=== PATIENT | male | born 1980 | race Caucasian/White ===

== ENCOUNTER 2018-01-28 09:07 | Emergency (ER) | payer MEDICAID, OTHER ==
[~2018-01-28] VITALS: Ht 182.9 cm; Wt 74.3 kg
[2018-01-28 09:16] VITALS: BP 124/76
[2018-01-28] MEDS ORDERED: PENI250T2 PO (09:44)
[2018-01-28] MEDS ORDERED: TRAM50TA2 PO (09:44)
== END 2018-01-28 09:54 | disposition home or self-care (01) ==
LOC: ER 09:07
DX: S02.5XXA Fracture of tooth (traumatic), initial encounter for closed fracture (principal); K02.9 Dental caries, unspecified; Z88.5 Allergy status to narcotic agent; Z88.8 Allergy status to other drugs, medicaments and biological substances; Z88.0 Allergy status to penicillin; Z79.899 Other long term (current) drug therapy; X58.XXXA Exposure to other specified factors, initial encounter; Y93.89 Activity, other specified; Y92.89 Other specified places as the place of occurrence of the external cause; Y99.8 Other external cause status
CPT/HCPCS: 99283

== ENCOUNTER 2021-12-05 10:09 | Emergency (ER) | payer MEDICAID, OTHER ==
[~2021-12-05] VITALS: Ht 185.4 cm; Wt 81.8 kg
[2021-12-05 10:11] VITALS: BP 144/81
[2021-12-05] MEDS ORDERED: AMOX500C2 PO (10:53)
== END 2021-12-05 11:11 | disposition home or self-care (01) ==
LOC: ER 10:09
DX: J02.9 Acute pharyngitis, unspecified (principal); Z88.6 Allergy status to analgesic agent; Z79.2 Long term (current) use of antibiotics
CPT/HCPCS: 99283

== ENCOUNTER 2023-06-12 00:27 | Emergency (ER) | payer MEDICAID ==
[~2023-06-12] VITALS: Ht 182.9 cm; Wt 77.3 kg
[2023-06-12 00:29] VITALS: TEMP 99.1
[2023-06-12 01:13] LABS: BASOPHILS % (AUTO) 0.2 % (0-1); EOSINOPHILS # (AUTO) 0.1 X10'3 (0-0.9); EOSINOPHILS % (AUTO) 0.4 % (0-6); HEMATOCRIT 39.5 % (42.0-52.0); HEMOGLOBIN 13.4 g/dl (14.0-17.9); LYMPHOCYTES # (AUTO) 1.7 X10'3 (1.1-4.8); LYMPHOCYTES % (AUTO) 11.6 % (21-51); MEAN CORPUSCULAR HEMOGLOBIN 30.4 PG (27.0-31.0); MEAN CORPUSCULAR HGB CONC 33.9 g/dL (33.0-36.5); MEAN CORPUSCULAR VOLUME 89.7 FL (78-98); MEAN PLATELET VOLUME 8.5 FL (7.4-10.4); MONOCYTES % (AUTO) 6.9 % (2-12); NEUTROPHILS # (AUTO) 12.1 X10'3 (1.8-7.7); NEUTROPHILS % (AUTO) 80.9 % (42-75); PLATELET COUNT 243 X10'3 (140-440)
[2023-06-12 01:17] LABS: ALANINE AMINOTRANSFERASE 21 U/L (12-78); ALBUMIN 3.9 G/DL (3.4-5.0); ALBUMIN/GLOBULIN RATIO 1.1 (1.1-1.5); ALKALINE PHOSPHATASE 74 IU/L (46-116); ANION GAP 13 (8-16); ASPARTATE AMINO TRANSFERASE 17 U/L (10-37); BILIRUBIN,TOTAL 0.5 MG/DL (0.1-1.0); BLOOD UREA NITROGEN 23 MG/DL (7-18); BUN/CREATININE RATIO 17.4 (10.0-20.0); CALCIUM 8.7 MG/DL (8.5-10.1); CHLORIDE 101 MMOL/L (99-107); CREATININE 1.32 MG/DL (0.60-1.10); GLUCOSE 143 MG/DL (70-104); LIPASE 57 U/L (16-77); POTASSIUM 3.8 MMOL/L (3.5-5.1); SODIUM 139 MMOL/L (135-145); TOTAL CARBON DIOXIDE 24.7 MMOL/L (24-32); TOTAL PROTEIN 7.6 G/DL (6.4-8.2); eCRCL 81 ML/MIN; eGFR 60 ML/MIN
[2023-06-12] MEDS: ondansetron/PF 4mg/2ml inj IV ONE (01:21)
[2023-06-12] MEDS: morphine 4 MG/ML inj SYRINge IV ONE (01:21)
[2023-06-12] MEDS: normal saline 1000ml 1,000 ML IV ONE (01:22)
[2023-06-12] MEDS: oxyCODONE IR 5mg (immed. release) tablet PO ONE ×2 (02:36→07:21)
[2023-06-12] MEDS: fentaNYL/PF 50MCG/1 ML 2ML syringe IV ONE ×2 (02:51→04:31)
[2023-06-12 03:58] LABS: BILIRUBIN,URINE NEGATIVE (Neg); COLOR,URINE YELLOW (Yellow); GLUCOSE, URINE NEGATIVE (Neg); KETONES,URINE >=80 mg/dl (Neg); LEUKOCYTE ESTERASE ,URINE NEGATIVE (Neg); NITRITES, URINE NEGATIVE (Neg); OCCULT BLOOD,URINE LARGE (Neg); PH,URINE 6.5 (4.8-8.0); PROTEIN,URINE TRACE mg/dl (Neg); UROBILINOGEN,URINE 0.2 E.U/dL (0.2-1.0)
[2023-06-12 04:00] LABS: CLARITY,URINE SLIGHTLY CLOUDY (Clear); UA COLLECTION TYPE NON-SPECIFIED
[2023-06-12 04:08] LABS: URINE AMPHETAMINE SCREEN NEGATIVE (Neg); URINE BARBITUATE SCREEN NEGATIVE (Neg); URINE BENZODIAZEPINES SCREEN NEGATIVE (Neg); URINE CANNABINOID SCREEN POSITIVE (Neg); URINE COCAINE SCREEN NEGATIVE (Neg); URINE METHADONE SCREEN NEGATIVE (Neg); URINE OPIATE SCREEN POSITIVE (Neg); URINE PHENCYCLIDINE SCREEN NEGATIVE (Neg)
[2023-06-12 04:12] LABS: BACTERIA,URINE FEW /HPF (Neg); RBC,URINE 20-50 /HPF (0-2); SQUAMOUS EPITHELIAL CELL,UR FEW /LPF (FEW); WBC,URINE 0-4 /HPF (0-4)
[2023-06-12] MEDS ORDERED: OXYC-658 PO (05:43)
[2023-06-12] MEDS ORDERED: ONDA8TAB13 PO (05:43)
[2023-06-12] MEDS: OXYcodone (OXYCONTIN) Ext Release 15 MG TAB.SR.12H PO ONE (08:02)
[2023-06-12 08:33] VITALS: BP 111/53; PULSE 73; RESP 14; O2SAT 97
== END 2023-06-12 08:33 | disposition home or self-care (01) ==
LOC: ER 00:27
DX: N20.0 Calculus of kidney (principal); J45.909 Unspecified asthma, uncomplicated; Z88.6 Allergy status to analgesic agent; Z79.82 Long term (current) use of aspirin
CPT/HCPCS: 36415; 74176; 80053; 80305; 81001; 83690; 85025; 96361; 96374; 96375; 96376; 99285; J2270; J2405; J3010; J7030; A4615

== ENCOUNTER → 2023-09-03 | Outpatient (CLI) | payer MEDICAID ==
[~2023-09-03] MED LIST: ONDA8TAB13 PO
== END | disposition home or self-care (01) ==
LOC: RAD 13:25
PROVIDERS: ATTEND Urology
DX: N20.1 Calculus of ureter (principal)
CPT/HCPCS: 74018; 74176

== ENCOUNTER 2024-04-23 18:55 | Emergency (ER) | payer MEDICAID ==
[~2024-04-23] VITALS: Ht 185.4 cm; Wt 81.8 kg
[~2024-04-23 18:55] MED LIST changes: +ONDA-245 PO; -ONDA8TAB13 PO
[2024-04-23 19:04] VITALS: TEMP 99.1
[2024-04-23 21:14] VITALS: BP 142/79; PULSE 87; RESP 18; O2SAT 98
== END 2024-04-23 22:05 | disposition left against medical advice (07) ==
LOC: ER 18:56
DX: R00.2 Palpitations (principal); Z88.6 Allergy status to analgesic agent; Z88.2 Allergy status to sulfonamides; Z53.21 Procedure and treatment not carried out due to patient leaving prior to being seen by health care provider
CPT/HCPCS: 93005

== ENCOUNTER 2024-08-23 09:32 | Emergency (ER) | payer MEDICAID ==
[~2024-08-23] VITALS: Ht 185.4 cm; Wt 71.1 kg
[2024-08-23] MEDS ORDERED: LIDOcaine 5% patch TP ONE (09:45)
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
[2024-08-23] MEDS: LIDOcaine 5% patch TP ONE (10:43)
[2024-08-23] MEDS ORDERED: LIDO700A47 TOP (10:45)
[2024-08-23 10:54] VITALS: BP 118/79; PULSE 66; RESP 16; TEMP 99.1; O2SAT 97
== END 2024-08-23 10:56 | disposition home or self-care (01) ==
LOC: ER 09:32
DX: S13.4XXA Sprain of ligaments of cervical spine, initial encounter (principal); J45.909 Unspecified asthma, uncomplicated; V43.52XA Car driver injured in collision with other type car in traffic accident, initial encounter; Y93.89 Activity, other specified; Y92.410 Unspecified street and highway as the place of occurrence of the external cause; Y99.8 Other external cause status
CPT/HCPCS: 72040; 99283